=== PATIENT | male | born 1945 | race Caucasian/White ===

== ENCOUNTER 2016-08-01 15:22 | Inpatient (IN) | payer OTHER, MEDICAID, MEDICARE ==
[~2016-08-01] VITALS: Ht 193 cm; Wt 143.5 kg
[2016-08-01] VITALS (8 sets, daily range): BP systolic 97–125; BP diastolic 43–72; PULSE 79–90; RESP 20–22; TEMP 99.6–99.8; O2SAT 93–95
[~2016-08-01 15:22] MED LIST: 1-ME1LIQ PO; FURO40TA PO; GLUCTAB PO; HYDR50TA5 PO; LISI-366 PO
[2016-08-01] MEDS ORDERED: SODIUM CHLOR 0.9% 1000 ML INJ 1,000 ML IV SCH (15:48)
[2016-08-01] MEDS ORDERED: SODIUM CHLORIDE 0.9% FLUSH 5 ML FLUSH IV FLUSH PRN (16:00)
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
[2016-08-01 16:09] LABS: AUTOMATED NEUTROPHIL # 8.5 TH/MM3 (1.8-7.7); BASOPHIL # 0.1 TH/MM3 (0-0.2); BASOPHIL % 1.2 % (0.0-2.0); EOSINOPHIL % 0.2 % (0.0-4.0); HEMATOCRIT 43.9 % (39.0-51.0); HEMO FLAGS DIFF FINAL; LYMPH % 9.9 % (9.0-44.0); LYMPHOCYTE # 1.1 TH/MM3 (1.0-4.8); MEAN CORPUSCULAR HEMOGLOBIN 32.3 PG (27.0-34.0); MEAN CORPUSCULAR HGB CONC 34.4 % (32.0-36.0); MONO % 11.5 % (0.0-8.0); NEUT % 77.2 % (16.0-70.0); PLATELET COUNT 113 TH/MM3 (150-450); RED BLOOD COUNT 4.67 MIL/MM3 (4.50-5.90); RED CELL DISTRIBUTION WIDTH 12.6 % (11.6-17.2)
[2016-08-01] MEDS ORDERED: cefTRIAXone INJ 1,000 MG in SODIUM CHLORIDE 0.9% INJ 100 ML IV ONE (16:15)
[2016-08-01 16:20] LABS: CHLORIDE 102 MEQ/L (98-107); POTASSIUM 3.4 MEQ/L (3.5-5.1); SODIUM (NA) 139 MEQ/L (136-145)
[2016-08-01 16:23] LABS: ANION GAP 13 MEQ/L (5-15); BICARBONATE 23.8 MEQ/L (21.0-32.0)
[2016-08-01 16:24] LABS: BLOOD UREA NITROGEN 20 MG/DL (7-18)
[2016-08-01 16:26] LABS: ALT (GPT) 47 U/L (12-78); AST (GOT) 48 U/L (15-37)
--- NOTE | 2016-08-01 16:26 | RADHPO ---
EXAM DATE/TIME: 08/01/2016 15:58 [facility] COMPARISON: No previous studies available for comparison. INDICATIONS : Shortness of breath. MEDICAL HISTORY : None. SURGICAL HISTORY : None. ENCOUNTER: Initial ACUITY: 1 day PAIN SCORE: Non-responsive. LOCATION: Bilateral chest FINDINGS: A single view of the chest demonstrates the lungs to be symmetrically aerated without evidence of mas s, infiltrate or effusion. The cardiomediastinal contours are unremarkable. Osseous structures are intact. CONCLUSION: 1. No acute cardiopulmonary findings. Addi Tenorio MD on August 01, 2016 at 16:08 Board Certified Radiologist. This report was verified electronically.
[2016-08-01 16:27] LABS: GLOMERULAR FILTRATION RATE 33 ML/MIN (>89)
[2016-08-01 16:28] LABS: TOTAL BILIRUBIN ADULT 1.3 MG/DL (0.2-1.0)
[2016-08-01 16:29] LABS: ALKALINE PHOSPHATASE 69 U/L (45-117)
[2016-08-01] MEDS ORDERED: HYDR50TA3 PO (16:45)
[2016-08-01] MEDS ORDERED: AMLO10TA2 PO (16:45)
[2016-08-01] MEDS ORDERED: SITA50 PO (16:45)
[2016-08-01] MEDS ORDERED: ATOR10TA15 PO (16:45)
[2016-08-01] MEDS ORDERED: METF850T PO (16:45)
[2016-08-01] MEDS ORDERED: LISI40TA PO (16:45)
[2016-08-01] MEDS ORDERED: FURO20TA PO (16:45)
--- NOTE | 2016-08-01 17:17 | RADHPO ---
EXAM DATE/TIME: 08/01/2016 16:32 [facility] COMPARISON: [facility], July 23, 2014, 16:17. INDICATIONS : Change in mental status. RADIATION DOSE: 60.92 CTDIvol (mGy) MEDICAL HISTORY : Hypertension. Carcinoma, prostate. Diabetes. SURGICAL HISTORY : None. ENCOUNTER: Initial ACUITY: 1 day PAIN SCALE: 0/10 LOCATION: cranial TECHNIQUE: Multiple contiguous axial images were obtained of the head. Using automated exposure control and adj ustment of the mA and/or kV according to patient size, radiation dose was kept as low as reasonably a chievable to obtain optimal diagnostic quality images. FINDINGS: CEREBRUM: The ventricles are normal for age. No evidence of midline shift, mass lesion, hemorrhage or acute in farction. The examination does demonstrate an 8 mm lacunar infarct in the right basal ganglia. No ex tra-axial fluid collections are seen. POSTERIOR FOSSA: The cerebellum and brainstem are intact. The 4th ventricle is midline. The cerebellopontine angle i s unremarkable. EXTRACRANIAL: The visualized portion of the orbits is intact. SKULL: The calvaria is intact. No evidence of skull fracture. CONCLUSION: Old lacunar infarct in the right basal ganglia. Addi Tenorio MD on August 01, 2016 at 17:11 Board Certified Radiologist. This report was verified electronically.
[2016-08-01 17:37] LABS: BLOOD, URINE SMALL (NEG); GLUCOSE,URINE NEG (NEG); KETONE, URINE TRACE mg/dL (NEG); NITRITE,URINE NEG (NEG); PH, URINE 5.5 (5.0-8.5)
[2016-08-01 17:39] LABS: METHOD OF COLLECTION CATH; URINE COLOR YELLOW (YELLW/STRAW)
[2016-08-01 17:41] LABS: COMMENT (UR) CULT NOT INDICATED; CULTURE IF INDICATED CULT NOT INDICATED; RBC, URINE 0-3 /hpf (0-3); SQUAMOUS EPITHELIAL CELL URINE 0-5 /hpf (0-5); WBC, URINE 0-2 /hpf (0-5)
[2016-08-01 18:05] LABS: LACTIC ACID GHOST NOT REPORTABLE
[2016-08-01] MEDS ORDERED: LEVOFLOXACIN 500 MG PREMIX INJ 100 ML IV SCH (18:45)
[2016-08-01] MEDS ORDERED: GLUCAGON 1 MG/ML VIAL OTHER PRN (18:45)
[2016-08-01] MEDS ORDERED: DEXTROSE 50% IN WATER 50 ML VIAL(D50) IV PRN (18:45)
[2016-08-01] MEDS ORDERED: VANCOMYCIN INJ 1,000 MG in SODIUM CHLOR 0.9% 250 ML INJ 250 ML IV SCH (19:00)
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
[2016-08-01] MEDS: PIPERACIL-TAZO 3.375 GM PREMIX 50 ML IV SCH (19:46)
[2016-08-01] MEDS: SODIUM CHLOR 0.9% 1000 ML INJ 1,000 ML IV SCH (19:46)
[2016-08-01 19:52] LABS: BARBITURATES, URINE NEG (NEG)
[2016-08-01 19:53] LABS: AMPHETAMINE, URINE NEG (NEG); COCAINE, URINE NEG (NEG)
[2016-08-01] MEDS ORDERED: Vancomycin Consult Pharmacy 1 EA OTHER SCH (20:00)
[2016-08-01] MEDS ORDERED: POTASSIUM PHOSPHATE INJ 15 MMOL in SODIUM CHLORIDE 0.9% INJ 150 ML IV ONE (20:00)
--- NOTE | 2016-08-01 20:21 | RADHPO ---
EXAM DATE/TIME: 08/01/2016 19:44 [facility] COMPARISON: No previous studies available for comparison. INDICATIONS : Increased lab values, altered mental status, fever. MEDICAL HISTORY : Carcinoma, prostate. Hypertension. CKD. Diabetic. SURGICAL HISTORY : Tonsillectomy. ENCOUNTER: Initial ACUITY: 1 day PAIN SCORE: 0/10 LOCATION: Bilateral upper quadrant MEASUREMENTS: LIVER: 18.7 cm length COMMON DUCT: 5 mm RIGHT KIDNEY: 13.2 x 5.1 x 6.7 cm SPLEEN: 14.0 cm length FINDINGS: LIVER: Severe increased echotexture without focal lesion or ductal dilatation. Geographic area of hypoechog enicity is present adjacent to the gallbladder fossa. Main portal vein is patent. COMMON DUCT: No intraluminal mass or stone visualized. GALLBLADDER: Contains no stones, demonstrates no wall thickening or pericholecystic fluid. PANCREAS: The visualized portions are within normal limits. RIGHT KIDNEY: No hydronephrosis, stone or mass. SPLEEN: No focal lesion. CONCLUSION: 1. No acute finding is identified. 2. Mild hepatomegaly with severe steatosis. Suspected area of fat sparing is identified adjacent to t he gallbladder fossa. 3. Mild splenomegaly. Brian García MD on August 01, 2016 at 20:17 Board Certified Radiologist. This report was verified electronically.
[2016-08-01] MEDS: ATORVASTATIN 10 MG TAB PO SCH (21:24)
[2016-08-01] MEDS: INSULIN ASPART SUPPLEMENTAL SCALE SQ SCH (21:27)
[2016-08-01] MEDS: VANCOMYCIN INJ 2,400 MG in SODIUM CHLORID 0.9% 500 ML INJ 500 ML IV SCH (22:35)
[2016-08-02] VITALS: BP 115/64; PULSE 73; RESP 20; TEMP 100.8; O2SAT 96
[2016-08-02] MEDS: SODIUM CHLOR 0.9% 1000 ML INJ 1,000 ML IV SCH ×2 (06:00→17:29)
[2016-08-02] MEDS: INSULIN ASPART SUPPLEMENTAL SCALE SQ SCH ×4 (06:00→20:17)
[2016-08-02 07:00] LABS: CHLORIDE 103 MEQ/L (98-107); POTASSIUM 3.4 MEQ/L (3.5-5.1); SODIUM (NA) 139 MEQ/L (136-145)
[2016-08-02 07:05] LABS: AUTOMATED NEUTROPHIL # 6.3 TH/MM3 (1.8-7.7); BASOPHIL # 0.1 TH/MM3 (0-0.2); BASOPHIL % 1.3 % (0.0-2.0); EOSINOPHIL % 0.3 % (0.0-4.0); HEMATOCRIT 39.6 % (39.0-51.0); LYMPH % 14.2 % (9.0-44.0); LYMPHOCYTE # 1.2 TH/MM3 (1.0-4.8); MEAN CELL VOLUME 94.9 FL (80.0-100.0); MEAN CORPUSCULAR HEMOGLOBIN 32.5 PG (27.0-34.0); MEAN CORPUSCULAR HGB CONC 34.3 % (32.0-36.0); MONO % 12.9 % (0.0-8.0); NEUT % 71.3 % (16.0-70.0); PLATELET COUNT 80 TH/MM3 (150-450); RED BLOOD COUNT 4.18 MIL/MM3 (4.50-5.90); RED CELL DISTRIBUTION WIDTH 12.7 % (11.6-17.2); WHITE BLOOD COUNT 8.8 TH/MM3 (4.0-11.0)
[2016-08-02 07:06] LABS: HEMO FLAGS AUTO DIFF
[2016-08-02 07:15] LABS: ALKALINE PHOSPHATASE 43 U/L (45-117); ALT (GPT) 38 U/L (12-78); ANION GAP 10 MEQ/L (5-15); AST (GOT) 41 U/L (15-37); BICARBONATE 25.6 MEQ/L (21.0-32.0); BLOOD UREA NITROGEN 23 MG/DL (7-18); GLOMERULAR FILTRATION RATE 38 ML/MIN (>89); TOTAL BILIRUBIN ADULT 1.3 MG/DL (0.2-1.0)
[2016-08-02 07:26] LABS: BANDS 13 % (0-6); BASOPHILS 3 % (0-2); NEUTROPHIL # MANUAL DIFF 7.4 TH/MM3 (1.8-7.7); POLYS (SEG NEUTROPHILS) 71 % (16-70); WBC DIFF SAMPLE 100
[2016-08-02 07:27] LABS: PLATELET ESTIMATE SMEAR LOW (NORMAL); PLATELET MORPHOLOGY NORMAL (NORMAL); SCAN/DIFF FINAL DIFF MANUAL
[2016-08-02] MEDS ORDERED: POTASSIUM CHLORIDE 10 MEQ CONTROLLED RELEASE TAB PO ONE (08:00)
[2016-08-02 08:16] VITALS: BP 117/68; PULSE 74; RESP 19; TEMP 98.7; O2SAT 94
--- NOTE | 2016-08-02 08:29 | PD.PN.STU ---
Subjective Remarks 70 year old male admitted for altered mental status. The patient states that he is feeling much better this morning. He said that he slept a lot last night and had no acute complaints or changes overnight. He says he can't remember much since he arrived at the hospital yesterday, but he remembers the events prior to his arrival. He states that this has never happened to him before. He denies any previous illness in the weeks before his altered mental status yesterday. No changes in home medications. Denies a history of seizures. No history of strokes. Today he denies chest pain, shortness of breath, headaches, changes in vision, abdominal pain, N/V. Denies urinary frequency or dysuria. He has a good appetite. No tremor or focal/generalized weakness. Denies feeling dizzy or confused. Denies fevers, chills, or muscle aches. Objective Vitals Vital Signs Date Time Temp Pulse Resp B/P Pulse Ox O2 Delivery O2 Flow Rate FiO2 08/02/16 00:00 100.8 73 20 115/64 96 08/01/16 20:42 92 122/67 94 08/01/16 20:00 99.8 79 22 97/43 93 08/01/16 19:15 99.7 90 20 125/66 95 Room Air 08/01/16 19:00 Room Air 08/01/16 18:15 85 20 112/72 94 Room Air 08/01/16 17:00 80 20 119/66 95 Room Air 08/01/16 15:55 82 22 95 Nasal Cannula 2 08/01/16 15:55 94 Nasal Cannula 2 08/01/16 15:50 82 22 116/59 95 Nasal Cannula 2 08/01/16 15:25 99.6 88 22 102/62 94 I/O 08/01/16 08/01/16 08/01/16 08/02/16 08/02/16 08/02/16 07:00 15:00 23:00 07:00 15:00 23:00 Intake Total 2518 ml 480 ml Output Total 200 ml Balance 2318 ml 480 ml Intake Oral 480 ml IV Total 2518 ml Output Urine Total 200 ml # Voids 2 # Bowel Movements 0 Result Diagram: 08/02/16 0540 08/02/16 0540 Imaging Laboratory Tests Test 08/01/16 08/01/16 08/01/1617 15:50 17:30 19:05 05:40 Platelet Count 113 TH/MM3 80 TH/MM3 (150-450) (150-450) Neutrophils (%) (Auto) 77.2 % 71.3 % (16.0-70.0) (16.0-70.0) Monocytes (%) (Auto) 11.5 % 12.9 % (0.0-8.0) (0.0-8.0) Neutrophils # (Auto) 8.5 TH/MM3 (1.8-7.7) Monocytes # (Auto) 1.3 TH/MM3 1.1 TH/MM3 (0-0.9) (0-0.9) Potassium Level 3.4 MEQ/L 3.4 MEQ/L (3.5-5.1) (3.5-5.1) Blood Urea Nitrogen 20 MG/DL (7-18) 23 MG/DL (7-18) Creatinine 2.00 MG/DL 1.80 MG/DL (0.60-1.30) (0.60-1.30) Estimat Glomerular Filtration 33 ML/MIN (>89) 38 ML/MIN (>89) Rate Random Glucose 170 MG/DL 131 MG/DL (74-106) (74-106) Lactic Acid Level 3.0 mmol/L 3.3 mmol/L (0.4-2.0) (0.4-2.0) Total Bilirubin 1.3 MG/DL 1.3 MG/DL (0.2-1.0) (0.2-1.0) Aspartate Amino Transf 48 U/L (15-37) 41 U/L (15-37) (AST/SGOT) Total Protein 8.5 GM/DL (6.4-8.2) Urine Ketones TRACE mg/dL (NEG) Urine Occult Blood SMALL (NEG) Red Blood Count 4.18 MIL/MM3 (4.50-5.90) Neutrophils % (Manual) 71 % (16-70) Band Neutrophils % 13 % (0-6) Lymphocytes % 6 % (9-44) Basophils % 3 % (0-2) Platelet Estimate LOW (NORMAL) Alkaline Phosphatase 43 U/L (45-117) Albumin 2.9 GM/DL (3.4-5.0) Objective Remarks GENERAL: Pleasant male in no acute distress. Able to maintain adequate conversation with eye contact. SKIN: Warm and dry. HEAD: Normocephalic. EYES: No scleral icterus. No injection or drainage. NECK: Supple, trachea midline. No JVD or lymphadenopathy. CARDIOVASCULAR: Regular rate and rhythm without murmurs, gallops, or rubs. No carotid bruits. Peripheral pulses 2+. No peripheral edema. RESPIRATORY: Breath sounds equal bilaterally. No crackles, wheezing or rhonchi. No accessory muscle use. GASTROINTESTINAL: Abdomen soft, non-tender, nondistended. Bowel sounds present. No organomegaly. A/P Assessment and Plan 1. Altered mental status - improved, etiology still unknown at this time - blood cultures are still pending - Head CT on arrival showed old lacunar infarct - CXR did not show an acute process - Liver U/S showed severe steatosis with mild hepatomegaly - TSH was normal, urine tox screen and urinalysis were normal 2. Lactic acidosis - improving, most recent level 1.7 3. Thrombocytopenia - platelet count decreased from yesterday, most recent level is 80,000 - he is not actively bleeding, no history of coagulopathy or liver disease - continue to monitor trend 4. Fever - mild fever of 100.8, higher than yesterday - WBC 8.8, trending down - other vital signs are stable - currently on IV Zosyn, Vancomycin and Ceftriaxone 5. Hypokalemia - Giving replacement oral potassium 6. Acute kidney injury - Creatinine is improving, most recent is 1.8 - currently receiving IV normal saline 7. Hypertension - BP controlled with Lisinopril 50mg and Amlodipine 10mg currently Medical Decision Making Impression and Plan The exam, history, and the medical decision-making described in the above note were completed with my assistance as the dictating practitioner. I attest that I had a [id number] encounter with the patient on the same day, and personally performed all of the history, exam, or medical decision making. I reviewed and agree with the plan. Patient still febrile and hypotensive. Cultures pending. Clinically appears more coherent. Discussed with family and patient regarding plan of care. We' ll continue current antibiotics and follow cultures, encourage and relation Continue to hold blood pressure meds/diuretics, continue IV hydration Home one to 2 days pending progress Ana Hartman M3 Aug 02, 2016 08:29 Niki Hooper MD Aug 02, 2016 10:46
[2016-08-02] MEDS ORDERED: LISINOPRIL 20 MG TAB PO SCH (09:00)
[2016-08-02] MEDS ORDERED: FUROSEMIDE 20 MG TAB PO SCH (09:00)
[2016-08-02] MEDS: PIPERACIL-TAZO 3.375 GM PREMIX 50 ML IV SCH ×2 (10:39→20:18)
[2016-08-02 12:19] VITALS: BP 122/74; PULSE 71; RESP 19; TEMP 95.5; O2SAT 94
[2016-08-02] MEDS ORDERED: cefTRIAXone INJ 1,000 MG in SODIUM CHLORIDE 0.9% INJ 100 ML IV SCH (16:00)
[2016-08-02 16:38] VITALS: BP 105/73; PULSE 63; RESP 19; TEMP 98.3; O2SAT 95
[2016-08-02 20:00] VITALS: BP 121/68; PULSE 62; RESP 20; TEMP 96.9; O2SAT 96
[2016-08-02] MEDS: ATORVASTATIN 10 MG TAB PO SCH (20:18)
[2016-08-02] MEDS: VANCOMYCIN INJ 2,400 MG in SODIUM CHLORID 0.9% 500 ML INJ 500 ML IV SCH (21:14)
[2016-08-03] VITALS: BP 104/69; PULSE 66; RESP 20; TEMP 97; O2SAT 97
[2016-08-03] MEDS: INSULIN ASPART SUPPLEMENTAL SCALE SQ SCH ×2 (06:24→11:00)
[2016-08-03] MEDS: SODIUM CHLOR 0.9% 1000 ML INJ 1,000 ML IV SCH (06:25)
[2016-08-03 06:46] LABS: HEMATOCRIT 39.7 % (39.0-51.0); MEAN CELL VOLUME 94.8 FL (80.0-100.0); MEAN CORPUSCULAR HEMOGLOBIN 32.5 PG (27.0-34.0); MEAN CORPUSCULAR HGB CONC 34.3 % (32.0-36.0); PLATELET COUNT 74 TH/MM3 (150-450); RED BLOOD COUNT 4.19 MIL/MM3 (4.50-5.90); RED CELL DISTRIBUTION WIDTH 12.9 % (11.6-17.2); WHITE BLOOD COUNT 6.6 TH/MM3 (4.0-11.0)
[2016-08-03 06:57] LABS: CHLORIDE 107 MEQ/L (98-107); POTASSIUM 3.9 MEQ/L (3.5-5.1); SODIUM (NA) 143 MEQ/L (136-145)
[2016-08-03 06:59] LABS: HEMO FLAGS AUTO DIFF
[2016-08-03 07:04] LABS: ANION GAP 7 MEQ/L (5-15); BICARBONATE 29.5 MEQ/L (21.0-32.0); BLOOD UREA NITROGEN 16 MG/DL (7-18)
[2016-08-03 07:06] LABS: ALT (GPT) 46 U/L (12-78)
[2016-08-03 07:07] LABS: AST (GOT) 46 U/L (15-37); GLOMERULAR FILTRATION RATE 46 ML/MIN (>89)
[2016-08-03 07:08] LABS: TOTAL BILIRUBIN ADULT 0.9 MG/DL (0.2-1.0)
[2016-08-03 07:09] LABS: ALKALINE PHOSPHATASE 52 U/L (45-117)
[2016-08-03 07:23] LABS: BANDS 15 % (0-6); EOSINOPHILS 1 % (0-4); NEUTROPHIL # MANUAL DIFF 4.2 TH/MM3 (1.8-7.7); PLATELET ESTIMATE SMEAR LOW (NORMAL); PLATELET MORPHOLOGY NORMAL (NORMAL); POLYS (SEG NEUTROPHILS) 49 % (16-70); SCAN/DIFF FINAL DIFF MANUAL; WBC DIFF SAMPLE 100
[2016-08-03 08:00] VITALS: BP 116/75; PULSE 65; RESP 20; TEMP 97.4; O2SAT 94
[2016-08-03] MEDS: PIPERACIL-TAZO 3.375 GM PREMIX 50 ML IV SCH (08:06)
--- NOTE | 2016-08-03 08:51 | PD.PN.STU ---
Subjective Remarks Patient is doing well today. He has no acute complaints. No changes over night. He wants to go home today. Objective Vitals Vital Signs Date Time Temp Pulse Resp B/P Pulse Ox O2 Delivery O2 Flow Rate FiO2 08/03/16 00:00 97.0 66 20 104/69 97 08/02/16 20:00 96.9 62 20 121/68 96 08/02/16 16:38 98.3 63 19 105/73 95 08/02/16 12:19 95.5 71 19 122/74 94 I/O 08/02/16 08/02/16 08/02/16 08/03/16 08/03/16 08/03/16 07:00 15:00 23:00 07:00 15:00 23:00 Intake Total 480 ml 672 ml 638 ml 1629 ml Balance 480 ml 672 ml 638 ml 1629 ml Intake Oral 480 ml 680 ml IV Total 672 ml 638 ml 949 ml # Voids 2 3 # Bowel Movements 0 0 Result Diagram: 08/03/1651908/03/16519 Objective Remarks GENERAL: Pleasant male in no acute distress. SKIN: Warm and dry. HEAD: Normocephalic. EYES: No scleral icterus. No injection or drainage. NECK: Supple, trachea midline. No JVD or lymphadenopathy. CARDIOVASCULAR: Regular rate and rhythm without murmurs, gallops, or rubs. RESPIRATORY: Breath sounds equal bilaterally. No accessory muscle use. A/P Assessment and Plan 1. Metabolic encephalopathy - improved, etiology most likely due to viral infection. - No growth on blood cultures - Head CT on arrival showed old lacunar infarct - CXR did not show an acute process - Liver U/S showed severe steatosis with mild hepatomegaly - TSH was normal, urine tox screen and urinalysis were normal 2. Lactic acidosis - improving, most recent level 1.7 3. Thrombocytopenia - platelet count trending down, most recent level is 74,000 - he is stable, not actively bleeding, no history of coagulopathy or liver disease - Most likely due to viral infection 4. Fever - improved - WBC 6.6, trending down - currently on IV Zosyn Vancomycin 5. Hypokalemia - Giving replacement oral potassium - Improved to 3.9 6. Chronic Kidney Disease, Stage III. Acute on Chronic Renal insufficiency. - Creatinine is improving, most recent is 1.5 7. History of hypertension, currently hypotensive - BP is currently stable - Normally controlled with Lisinopril 50mg and Amlodipine 10mg normally, holding medications due to hypotension during hospital stay Medical Decision Making Impression and Plan The exam, history, and the medical decision-making described in the above note were completed with my assistance as the dictating practitioner. I attest that I had a [id number] encounter with the patient on the same day, and personally performed all of the history, exam, or medical decision making. I reviewed and agree with the plan. Patient afebrile and BP stable Cultures pending. Home today discussed with patient, spouse and RN Ana Hartman Aug 03, 2016 08:51 Niki Hooper MD Aug 03, 2016 12:36
--- NOTE | 2016-08-03 10:33 | HHI.DCPOC ---
Discharge Care Plan Diagnosis: (1) HTN (hypertension) (2) Metabolic encephalopathy (3) DM2 (diabetes mellitus, type 2) (4) SIRS (systemic inflammatory response syndrome) Additional Problems Hold your blood pressure medicines (lisinopril and amlodipine) until you see her primary care doctor Monday. Checked her blood pressure daily if elevated call primary care provider if systolic blood pressure (top number) greater than 140 resume amlodipine Goals to Promote Your Health * To prevent worsening of your condition and complications * To maintain your health at the optimal level Directions to Meet Your Goals Take your medications as prescribed Follow your dietary instruction Follow activity as directed Keep your appointments as scheduled Take your immunizations and boosters as scheduled If your symptoms worsen call your PCP, if no PCP go to Urgent Care Center or Emergency Room Smoking is Dangerous to Your Health. Avoid second hand smoke Call the 24-hour hour crisis hotline for domestic abuse at Niki Hooper MD Aug 03, 2016 10:33
[2016-08-03] MEDS ORDERED: AUGM500T7 PO (10:35)
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
== END 2016-08-03 12:27 | disposition home or self-care (01) | DRG 71 ==
LOC: PHED 15:22 → PHEDA 18:01 → PH3A 20:27
PROVIDERS: ADMIT Hospitalist; ATTEND Hospitalist
DX: G93.41 Metabolic encephalopathy (principal); E87.2 Acidosis; N17.9 Acute kidney failure, unspecified; K76.0 Fatty (change of) liver, not elsewhere classified; D69.6 Thrombocytopenia, unspecified; E11.22 Type 2 diabetes mellitus with diabetic chronic kidney disease; N18.3 Chronic kidney disease, stage 3 (moderate); B34.9 Viral infection, unspecified; I12.9 Hypertensive chronic kidney disease with stage 1 through stage 4 chronic kidney disease, or unspecified chronic kidney disease; E87.6 Hypokalemia; Z79.84 Long term (current) use of oral hypoglycemic drugs; Z79.4 Long term (current) use of insulin
CPT/HCPCS: 70450; 71010; 76705; 80053; 80307; 81001; 82948; 83605; 84443; 85007; 85025; 85027; 87040; 96365; J0696; J1815; J2543; J3370; J7030; J7040